=== PATIENT | female | born 1965 | race Caucasian/White ===

== ENCOUNTER 2021-07-11 07:27 | Emergency (ER) | payer OTHER ==
[~2021-07-11] VITALS: Ht 165.1 cm; Wt 58.1 kg
[2021-07-11 07:31] VITALS: BP 137/75
--- NOTE | 2021-07-11 07:34 | NUR ---
PT AMBULATED TO ER BED 5 WITH A STEADY GAIT.
--- NOTE | 2021-07-11 07:42 | NUR ---
55 Y/O FEMALE C/O RASH ON BILATERAL UPPER ARMS X 3 DAYS. DENIES FEVER/CHILLS. DENIES N/V. DENIES ITCHING, DENIES SOB, DENIES PAIN. DENIES PMH NKA
--- NOTE | 2021-07-11 07:44 | NUR ---
DR. CAPONE AT PT BEDSIDE FOR FURTHER EVALUATION.
[2021-07-11] MEDS ORDERED: CETI10SG1 PO (07:49)
[2021-07-11 07:50] VITALS: BP 130/77
--- NOTE | 2021-07-11 07:50 | NUR ---
Patient discharged with v/s stable. Written and verbal after care instructions given and explained. Patient alert, oriented and verbalized understanding of instructions. Ambulatory with steady gait. All questions addressed prior to discharge. ID band removed. Patient advised to follow up with PMD. Rx of ZYRTEC given. Patient educated on indication of medication including possible reaction and side effects. Opportunity to ask questions provided and answered.
== END 2021-07-11 07:50 | disposition home or self-care (01) ==
LOC: MED 07:27
DX: R21 Rash and other nonspecific skin eruption (principal)
CPT/HCPCS: 99283

== ENCOUNTER 2021-12-08 06:45 | Emergency (ER) | payer OTHER ==
[~2021-12-08] VITALS: Ht 165.1 cm; Wt 58.1 kg
[~2021-12-08 06:45] MED LIST: CETI10SG1 PO
[2021-12-08 06:50] VITALS: BP 132/75
[2021-12-08] MEDS ORDERED: DIPH25TA53 PO (07:24)
[2021-12-08] MEDS ORDERED: PRED20TA5 PO (07:24)
[2021-12-08 07:48] VITALS: BP 132/75
== END 2021-12-08 07:48 | disposition home or self-care (01) ==
LOC: MED 06:45
DX: R21 Rash and other nonspecific skin eruption (principal)
CPT/HCPCS: 99283

== ENCOUNTER 2022-03-18 06:56 | Emergency (ER) | payer OTHER ==
[~2022-03-18] VITALS: Ht 165.1 cm; Wt 55.3 kg
[~2022-03-18 06:56] MED LIST changes: +DIPH25TA53 PO; +PRED20TA5 PO
[2022-03-18 07:05] VITALS: BP 130/84
--- NOTE | 2022-03-18 07:12 | NUR ---
COVID-19 and flu swabs collected and sent to lab.
--- NOTE | 2022-03-18 08:35 | NUR ---
56/F PRESENTS TO ED WITH C/O COUGH, SOB, RUNNY NOSE AND INTERMITTENT FEVERS X2 DAYS, DENIES RECENT SICK CONTACTS OR TAKING MEDS FOR SYMPTOMS.
[2022-03-18 08:38] VITALS: BP 130/84
--- NOTE | 2022-03-18 08:38 | NUR ---
Patient discharged with v/s stable. Written and verbal after care instructions ABOUT VIRAL ILLNESS given and explained. Patient verbalized understanding. Ambulatory with steady gait. All questions addressed prior to discharge. Advised to follow up with PMD.
== END 2022-03-18 08:38 | disposition home or self-care (01) ==
LOC: MED 06:56
DX: B34.9 Viral infection, unspecified (principal); Z20.822 Contact with and (suspected) exposure to COVID-19
CPT/HCPCS: 99283

== ENCOUNTER 2024-02-14 18:05 | Emergency (ER) | payer OTHER ==
[~2024-02-14] VITALS: Ht 165.1 cm; Wt 59.1 kg
[2024-02-14 18:36] VITALS: BP 141/76; PULSE 80; RESP 16; TEMP 98; O2SAT 97
[2024-02-14] MEDS ORDERED: IBUP-1842 PO (19:29)
[2024-02-14] MEDS: IBUPROFEN 400 MG TAB PO ONE (19:36)
== END 2024-02-14 19:41 | disposition home or self-care (01) ==
LOC: MED 18:05
DX: S83.8X2A Sprain of other specified parts of left knee, initial encounter (principal); Z79.899 Other long term (current) drug therapy; W18.30XA Fall on same level, unspecified, initial encounter; Y93.89 Activity, other specified; Y92.89 Other specified places as the place of occurrence of the external cause; Y99.8 Other external cause status
CPT/HCPCS: 99282